=== PATIENT | male | born 1980 | race Caucasian/White ===

== ENCOUNTER 2022-07-30 06:15 | Day surgery (SDC) | payer OTHER ==
[~2022-07-30] VITALS: Ht 180.3 cm; Wt 110.2 kg
== END 2022-07-30 21:50 | disposition home or self-care (01) ==
LOC: CIR.AMB 06:15
PROVIDERS: ATTEND Urology
DX: Z30.2 Encounter for sterilization (principal); Z20.822 Contact with and (suspected) exposure to COVID-19; Z87.891 Personal history of nicotine dependence

== ENCOUNTER 2022-08-02 13:47 | Emergency (ER) | payer OTHER ==
[~2022-08-02] VITALS: Ht 170.2 cm; Wt 81.6 kg
== END 2022-08-03 02:04 | disposition home or self-care (01) ==
LOC: ER 13:47
DX: G97.1 Other reaction to spinal and lumbar puncture (principal); R51.9 Headache, unspecified; R07.9 Chest pain, unspecified